=== PATIENT | female | born 1960 | race Caucasian/White ===

== ENCOUNTER 2016-08-18 14:00 | Emergency (ER) | payer BC ==
[~2016-08-18 14:00] MED LIST: ARIMIDEX1 MG PO; HYDROCHLOROTHIA25 MG; LISINOPRIL10 MG PO; NORCO 5/325 TAB1 TAB PO; PRILOSEC20 MG PO
[2016-08-18] MEDS ORDERED: CELEBREX200 M1 PO (15:06)
[2016-08-18] MEDS ORDERED: PRINIVIL10 M1 PO (15:07)
[2016-08-18] MEDS ORDERED: ZOCOR5 M1 PO (15:07)
[2016-08-18] MEDS ORDERED: KEFLEX500 M4 PO (16:00)
== END 2016-08-18 17:01 ==
LOC: EDMED 14:00
PROC: 0HCGXZZ Extirpation of Matter from Left Hand Skin, External Approach (ICD-10-PCS; principal; 2016-08-18)
DX: S60.451A Superficial foreign body of left index finger, initial encounter (principal); I10 Essential (primary) hypertension; Z79.899 Other long term (current) drug therapy; W45.8XXA Other foreign body or object entering through skin, initial encounter; Y92.019 Unspecified place in single-family (private) house as the place of occurrence of the external cause
CPT/HCPCS: J0690